=== PATIENT | female | born 1955 | race Caucasian/White ===

== ENCOUNTER 2016-11-30 14:22 | Emergency (ER) | payer MEDICARE ==
[2016-11-30 15:08] LABS: SPECIFIC GRAVITY 1.015 (1.001-1.030); URINE BILIRUBIN NEGATIVE (NEGATIVE); URINE BLOOD 1+ (NEGATIVE); URINE GLUCOSE (UA) NEGATIVE (NEGATIVE); URINE LEUKOCYTE ESTERASE 1+ (NEGATIVE); URINE NITRITE POSITIVE (NEGATIVE); URINE PROTEIN 1+ (NEGATIVE)
[2016-11-30 15:09] LABS: URINE APPEARANCE HAZY; URINE COLOR AMBER; URINE UROBILINOGEN 4 mg/dL (0-1 mg/dl)
[2016-11-30 15:12] LABS: URINE BACTERIA 4+; URINE EPITHELIAL CELLS 15-20 /hpf; URINE MUCUS 4+; URINE RBC 20-30 /hpf; URINE WBC 50-60 /hpf
[2016-11-30 17:37] LABS: ABSOLUTE NEUTROPHIL COUNT 4.9 K/mm3 (1.8-7.7); BASO # 0.1 K/mm3 (0.0-0.2); BASO % 0.7 % (0.2-1.0); EOS # 0.1 (0.0-0.5); EOS % 1.2 % (0.9-2.9); HEMATOCRIT 43.5 % (37.0-47.0); HEMOGLOBIN 14.9 gm/l (12.0-16.0); IMM NEUT% 0.3 % (0-1); LYMPH # 1.8 (1.0-4.8); LYMPH % 23.8 % (15-45); MEAN CELL VOLUME 94.2 fl (81.0-99.0); MEAN CORPUSCULAR HEMOGLOBIN 32.3 pg (27.0-31.0); MEAN CORPUSCULAR HGB CONC 34.3 g/dl (33.0-37.0); MEAN PLATELET VOLUME 10.5 fl (7.4-10.4); MONO # 0.7 (0.0-0.8); MONO % 9.1 % (4-12); NEUT % 64.9 % (43-75); PLATELET COUNT 93 K/mm3 (130-400); RED CELL DISTRIBUTION WIDTH 11.7 % (11.5-14.5)
[2016-11-30 17:45] LABS: ALBUMIN 3.6 gm/dL (3.5-5.7); CALCIUM 8.7 mg/dL (8.6-10.3)
[2016-11-30] MEDS ORDERED: LORAZEPAM 2 MG/ML 1ML SDV ONE (17:54)
[2016-11-30] MEDS ORDERED: CEPHALEXIN 500 MG CAPSULE ONE (18:10)
[2016-11-30] MEDS ORDERED: NITROFURANTOIN/NITROFURAN MAC 100 MG CAPSULE ONE (18:23)
== END 2016-11-30 18:39 | disposition home or self-care (01) ==
LOC: ED 14:22
DX: N39.0 Urinary tract infection, site not specified (principal)

== ENCOUNTER 2017-02-04 06:47 | Day surgery (SDC) | payer MEDICARE ==
[~2017-02-04 06:47] MED LIST: FENTANYL 250 MCG/5 ML AMP IV PRN; IV START KIT ONE; LACTATED RINGERS 1,000 ML IV SCH; LIDOCAINE Viscous 2% 15 ML UDCUP PO PRN; MIDAZOLAM HCL 5 MG/5 ML VIAL IV PRN
[2017-02-04] MEDS ORDERED: MIDAZOLAM HCL 5 MG/5 ML VIAL ONE ×2 (07:53→07:55)
[2017-02-04] MEDS ORDERED: FENTANYL 250 MCG/5 ML AMP ONE (07:54)
[2017-02-04] MEDS ORDERED: LIDOCAINE Viscous 2% 15 ML UDCUP ONE (07:55)
[2017-02-04 12:51] LABS: HELICOBACTER PYLORII DETECTION NEGATIVE (NEGATIVE)
--- NOTE | 2017-02-09 10:43 | SURGPATH ---
[facility] [address] [place] [id number] Patient Name: TASHA GAMBINO MR#: [id number] : 1955 Gender: F Specimen #: [id number] Collected: 02/04/2017 Received: 02/06/2017 Reported: 02/09/2017 Submitting Phys: LIGIA JEFFREY Copy To Phys: LAYLA HAMPTON [facility] Clinical History / Pre-Operative Diagnosis: SCREENING COLONOSCOPY; LLQ PAIN; GERD; RULE OUT GIARDIA, CELIAC SPRUE AND GASTRITIS Specimen Source / Surgical Procedure Performed: #1-DUODENAL BIOPSY; #2-GASTRIC BIOPSY Interpretation: 1, 2. DUODENUM, STOMACH, BIOPSIES: - NO PATHOLOGIC DIAGNOSIS Electronically Signed Out Hawk Jung M.D. Gross Description: #1 The specimen is received in a formalin filled container labeled with the patient's name and "duodenal biopsy". Two hinson biopsies are 0.4 and 0.5 cm. Totally embedded in cassette #1. #2 The specimen is received in a formalin filled container labeled with the patient's name and "gastric biopsy". Three hinson biopsies are 0.3, 0.4 and 0.4 cm. Totally embedded in cassette #2. Tamia Sainz Microscopic Description: 1. Levels reveal small intestinal mucosa with a normal villous architecture. Ulceration, acute inflammation, granulomas, intraepithelial lymphocytosis, Giardia organisms, dysplasia and malignancy are not seen. 2. Levels reveal gastric mucosa with an unremarkable architecture and few chronic inflammatory cells in the lamina propria. Ulceration, acute inflammation, intestinal metaplasia, Helicobacter organisms, dysplasia and malignancy are not present. 1: 72501 2: 36047 R10.32
== END 2017-02-04 09:21 | disposition home or self-care (01) ==
LOC: SDC 06:47
PROVIDERS: ATTEND Internal Medicine Gastroenterology
PROC: 0DB98ZX Excision of Duodenum, Via Natural or Artificial Opening Endoscopic, Diagnostic (ICD-10-PCS; principal; 2017-02-04)
PROC: 0DB68ZX Excision of Stomach, Via Natural or Artificial Opening Endoscopic, Diagnostic (ICD-10-PCS; 2017-02-04)
PROC: 0DJD8ZZ Inspection of Lower Intestinal Tract, Via Natural or Artificial Opening Endoscopic (ICD-10-PCS; 2017-02-04)
DX: Z12.11 Encounter for screening for malignant neoplasm of colon (principal); K57.30 Diverticulosis of large intestine without perforation or abscess without bleeding; K29.60 Other gastritis without bleeding; Z90.49 Acquired absence of other specified parts of digestive tract; E78.5 Hyperlipidemia, unspecified; E03.9 Hypothyroidism, unspecified; I10 Essential (primary) hypertension; E79.0 Hyperuricemia without signs of inflammatory arthritis and tophaceous disease; Z79.82 Long term (current) use of aspirin
CPT/HCPCS: 87081; 43239; 45378; J3010; J2250 ×2; A9270; J7120